=== PATIENT | male | born 1955 | race American Indian/Alaskan Native ===

== ENCOUNTER 2019-05-28 01:22 | Inpatient (IN) | payer OTHER, MEDICARE ==
[2019-05-28] MEDS ORDERED: ASPIRIN 325 MG TAB PO ONE (01:32)
[2019-05-28] MEDS ORDERED: FUROSEMIDE 40 MG/4 ML INJ IV ONE (01:35)
[2019-05-28] MEDS ORDERED: NITROGLYCERIN DRIP 50 MG/250 ML BOTTLE IV SCH (02:00)
[2019-05-28 02:11] LABS: Basophils % (Auto) 0.5 % (0.0-1.8); Eosinophils # (Auto) 0.1 K/mm3 (0.0-0.4); Eosinophils % (Auto) 1.5 % (0.0-4.3); Hematocrit 38.9 % (35.5-45.6); Hemoglobin 12.9 gm/dl (11.8-15.2); Lymphocytes # (Auto) 1.4 K/mm3 (1.2-5.4); Lymphocytes % (Auto) 20.7 % (13.4-35.0); Mean Corpuscular HGB Conc 33 % (32-34); Mean Corpuscular Volume 96 fl (84-94); Monocytes # (Auto) 0.4 K/mm3 (0.0-0.8); Monocytes % (Auto) 5.2 % (0.0-7.3); Platelet Count 207 K/mm3 (140-440); Red Blood Count 4.07 M/mm3 (3.65-5.03); Red Cell Distribution Width 15.7 % (13.2-15.2)
[2019-05-28 02:17] LABS: INR 1.06 (0.87-1.13)
[2019-05-28 02:18] LABS: Partial Thromboplastin Time 25.2 Sec. (24.2-36.6)
[2019-05-28] MEDS ORDERED: NITROGLYCERIN 2% OINT 1 GM TP ONE ×2 (02:23→02:32)
--- NOTE | 2019-05-28 02:23 | XRay Report ---
CHEST 1 VIEW 05/28/2019 1:41 AM INDICATION / CLINICAL INFORMATION: respiratory distress. COMPARISON: None available. FINDINGS: SUPPORT DEVICES: None. HEART / MEDIASTINUM: The heart is moderately enlarged with central vascular congestion. LUNGS / PLEURA: Generalized bilateral interstitial opacities are noted with more dense airspace opaci ties seen along the mid to lower portions of the right lung. No significant pleural effusion. No pneu mothorax. ADDITIONAL FINDINGS: No significant additional findings. IMPRESSION: 1. Probable bilateral atelectasis/edema. 2. Moderate cardiomegaly. Signer Name: Alexi Parish MD Signed: 05/28/2019 2:18 AM Workstation Name: [id number]
[2019-05-28 02:33] LABS: BUN/Creatinine Ratio 16; Blood Urea Nitrogen 16 mg/dL (9-20); Calcium 8.4 mg/dL (8.4-10.2); Hemolysis Index 8
--- NOTE | 2019-05-28 02:37 | Emergency Department Report ---
ED General Adult HPI - General Chief complaint: Dyspnea/Respdistress Stated complaint: MÓNICA Time Seen by Provider: 05/28/19 01:32 Source: patient, EMS Mode of arrival: Stretcher Limitations: No Limitations - History of Present Illness Initial comments: Patient is a 64-year-old -[place] male with past history of hypertension and recent diagnosis several weeks ago congestive heart failure who is presenting with acute shortness of breath. Patient's states that approximately 3 hours ago she was woken up with the patient stating he was very short of breath and will feel as though he is being smothered. Patient of the last several weeks has had 3 pillow orthopnea and PND but symptoms worsened. Patient is compliant with his medications and diet. Paramedics state that the patient was hypertensive and hypoxic on their arrival and a O2 sat of 83%. Patient is denying chest pain nausea vomiting fever chills cough cold or congestion. - Related Data Home Medications Medication Instructions Recorded Confirmed Last Taken Benicar 40 mg PO DAILY 05/28/19 05/28/19 Unknown Lasix TAB 40 mg PO DAILY 05/28/19 05/28/19 Unknown Metoprolol 50 mg PO DAILY 05/28/19 05/28/19 Unknown Potassium Chloride 20 meq PO DAILY 05/28/19 05/28/19 Unknown Synthroid 150 mcg PO TID 05/28/19 05/28/19 Unknown dilTIAZem 30 mg PO DAILY 05/28/19 05/28/19 Unknown Allergies Allergy/AdvReac Type Severity Reaction Status Date / Time No Known Allergies Allergy Verified 05/28/19 01:34 ED Review of Systems ROS: Stated complaint: MÓNICA Other details as noted in HPI Comment: All other systems reviewed and negative ED Past Medical Hx - Past Medical History Previous Medical History?: Yes Hx Hypertension: Yes Hx Congestive Heart Failure: Yes - Surgical History Past Surgical History?: No - Social History Smoking Status: Never Smoker Substance Use Type: None - Medications Home Medications: Home Medications Medication Instructions Recorded Confirmed Last Taken Type Benicar 40 mg PO DAILY 05/28/19 05/28/19 Unknown History Lasix TAB 40 mg PO DAILY 05/28/19 05/28/19 Unknown History Metoprolol 50 mg PO DAILY 05/28/19 05/28/19 Unknown History Potassium Chloride 20 meq PO DAILY 05/28/19 05/28/19 Unknown History Synthroid 150 mcg PO TID 05/28/19 05/28/19 Unknown History dilTIAZem 30 mg PO DAILY 05/28/19 05/28/19 Unknown History ED Physical Exam - General Limitations: No Limitations General appearance: alert, in distress - Head Head exam: Present: atraumatic, normocephalic - Eye Eye exam: Present: normal appearance, PERRL, EOMI - ENT ENT exam: Present: mucous membranes moist - Neck Neck exam: Present: normal inspection - Respiratory Respiratory exam: Present: normal lung sounds bilaterally, rales. Absent: respiratory distress, wheezes, rhonchi - Cardiovascular Cardiovascular Exam: Present: regular rate, normal rhythm, normal heart sounds. Absent: systolic murmur, diastolic murmur, rubs, gallop - GI/Abdominal GI/Abdominal exam: Present: soft, normal bowel sounds. Absent: distended, tenderness, guarding, rebound, rigid - Rectal Rectal exam: Present: deferred - Extremities Exam Extremities exam: Present: normal inspection, other (+1 edema to bilateral ankles) - Back Exam Back exam: Present: normal inspection - Neurological Exam Neurological exam: Present: alert, oriented X3 - Psychiatric Psychiatric exam: Present: normal affect, normal mood - Skin Skin exam: Present: warm, dry, intact, normal color. Absent: rash ED Course Vital Signs 05/28/19 05/28/19 05/28/19 01:34 01:58 02:06 Temperature 97.8 F Pulse Rate 76 64 66 Respiratory 16 27 H 16 Rate Blood Pressure 180/110 126/85 Blood Pressure 126/85 [Left] O2 Sat by Pulse 88 96 96 Oximetry 05/28/19 02:33 Temperature Pulse Rate Respiratory Rate Blood Pressure 136/87 Blood Pressure [Left] O2 Sat by Pulse Oximetry ED Medical Decision Making - Lab Data Result diagrams: 05/28/19 01:51 05/28/19 01:51 Lab Results 05/28/19 05/28/19 05/28/19 Range/Units 01:51 01:51 01:51 WBC 6.9 (4.5-11.0) K/mm3 RBC 4.07 (3.65-5.03) M/mm3 Hgb 12.9 (11.8-15.2) gm/dl Hct 38.9 (35.5-45.6) % MCV 96 H (84-94) fl MCH 32 (28-32) pg MCHC 33 (32-34) % RDW 15.7 H (13.2-15.2) % Plt Count 207 (140-440) K/mm3 Lymph % (Auto) 20.7 (13.4-35.0) % Glynn % (Auto) 5.2 (0.0-7.3) % Eos % (Auto) 1.5 (0.0-4.3) % Baso % (Auto) 0.5 (0.0-1.8) % Lymph # 1.4 (1.2-5.4) K/mm3 Glynn # 0.4 (0.0-0.8) K/mm3 Eos # 0.1 (0.0-0.4) K/mm3 Baso # 0.0 (0.0-0.1) K/mm3 Seg Neutrophils % 72.1 H (40.0-70.0) % Seg Neutrophils # 5.0 (1.8-7.7) K/mm3 PT 13.7 (12.2-14.9) Sec. INR 1.06 (0.87-1.13) APTT 25.2 (24.2-36.6) Sec. Sodium 142 (137-145) mmol/L Potassium 3.7 (3.6-5.0) mmol/L Chloride 105.0 (98-107) mmol/L Carbon Dioxide 23 (22-30) mmol/L Anion Gap 18 mmol/L BUN 16 (9-20) mg/dL Creatinine 1.0 (0.8-1.5) mg/dL Estimated GFR > 60 ml/min BUN/Creatinine Ratio 16 % Glucose 213 H (75-100) mg/dL Calcium 8.4 (8.4-10.2) mg/dL Troponin T < 0.010 (0.00-0.029) ng/mL NT-Pro-B Natriuret Pep (0-900) pg/mL 05/28/19 Range/Units 01:51 WBC (4.5-11.0) K/mm3 RBC (3.65-5.03) M/mm3 Hgb (11.8-15.2) gm/dl Hct (35.5-45.6) % MCV (84-94) fl MCH (28-32) pg MCHC (32-34) % RDW (13.2-15.2) % Plt Count (140-440) K/mm3 Lymph % (Auto) (13.4-35.0) % Glynn % (Auto) (0.0-7.3) % Eos % (Auto) (0.0-4.3) % Baso % (Auto) (0.0-1.8) % Lymph # (1.2-5.4) K/mm3 Glynn # (0.0-0.8) K/mm3 Eos # (0.0-0.4) K/mm3 Baso # (0.0-0.1) K/mm3 Seg Neutrophils % (40.0-70.0) % Seg Neutrophils # (1.8-7.7) K/mm3 PT (12.2-14.9) Sec. INR (0.87-1.13) APTT (24.2-36.6) Sec. Sodium (137-145) mmol/L Potassium (3.6-5.0) mmol/L Chloride (98-107) mmol/L Carbon Dioxide (22-30) mmol/L Anion Gap mmol/L BUN (9-20) mg/dL Creatinine (0.8-1.5) mg/dL Estimated GFR ml/min BUN/Creatinine Ratio % Glucose (75-100) mg/dL Calcium (8.4-10.2) mg/dL Troponin T (0.00-0.029) ng/mL NT-Pro-B Natriuret Pep 2020 H (0-900) pg/mL - EKG Data -: EKG Interpreted by Mo - EKG Data 05/28/19 02:48 EKG shows sinus rhythm with a rate of 88 axis is normal intervals normal. There are Q waves anteriorly. There is no ST segment elevations or depressions. - Radiology Data CHEST 1 VIEW 05/28/2019 1:41 AM INDICATION / CLINICAL INFORMATION: respiratory distress. COMPARISON: None available. FINDINGS: SUPPORT DEVICES: None. HEART / MEDIASTINUM: The heart is moderately enlarged with central vascular congestion. LUNGS / PLEURA: Generalized bilateral interstitial opacities are noted with more dense airspace opacities seen along the mid to lower portions of the right lung. No significant pleural effusion. No pneumothorax. ADDITIONAL FINDINGS: No significant additional findings. IMPRESSION: 1. Probable bilateral atelectasis/edema. 2. Moderate cardiomegaly. Signer Name: Alexi Parish MD Signed: 05/28/2019 2:18 AM Workstation Name: [email or web address] Transcribed By: MELLY Dictated By: Alexi Parish MD Electronically Authenticated By: Alexi - Medical Decision Making Patient was showing evidence of air hunger on arrival was placed on BiPAP. Patient was able to calm down. Nitro drip was to be initiated however his pressure improved after he was better ventilated. Patient was started on nitro paste. Patient given IV Lasix. Chest x-ray is consistent with pulmonary edema. Patient will be admitted to the hospitalist service at this time. Critical care attestation.: If time is entered above; I have spent that time in minutes in the direct care of this critically ill patient, excluding procedure time. ED Disposition Clinical Impression: Hypertensive urgency, malignant, Hypoxia, Acute respiratory distress Acute exacerbation of CHF (congestive heart failure) Qualifiers: Heart failure type: unspecified Qualified Code(s): I50.9 - Heart failure, unspecified Disposition: OP ADMIT IP TO THIS HOSP Is pt being admited?: Yes Does the pt Need Aspirin: No Condition: Stable Referrals: PRIMARY CARE, [Primary Care Provider] - 3-5 Days Time of Disposition: 02:50
[2019-05-28] MEDS ORDERED: ONDANSETRON 4 MG/2 ML INJ IV PRN (02:56)
[2019-05-28] MEDS ORDERED: ACETAMINOPHEN 325 MG TAB PO PRN (02:56)
[2019-05-28] MEDS ORDERED: ALBUTEROL 2.5 MG/3 ML NEBU IH PRN (02:56)
[2019-05-28] MEDS ORDERED: NITROGLYCERIN 0.4 MG TAB SUBL SL PRN (03:22)
[2019-05-28] MEDS ORDERED: ASPIRIN 81 MG TAB CHEW PO ONE (03:22)
--- NOTE | 2019-05-28 03:30 | History and Physical Report ---
<BRANDIN ANDERSON - Last Filed: 05/28/19 03:25> History of Present Illness Date of examination: 05/28/19 Date of admission: 05/28/2019 Chief complaint: difficulty in breathing History of present illness: 64-year-old -[place] male with history CHF and hypertension who presents [facility] ED with complaints of difficulty in breathing.Pt and son are present at bedside and have assisted in providing history. Pt was at home in bed sle eping when he was awakened feeling extremely short of breath. He described it as feeling "smothered". Pt states that this is not the first time he was awakened from sleep with this feeling. However tonight's episode was the worst he's ever felt. EMS was called and upon arrival pt was found to be profoundly hypertensive and hypoxic with saturation of 83% on RA. Pt was placed on supplemental O2 and transported to our facility. Pt admits to being compliant with meds. He denies CP, n/v, diaphoresis, fever, headache, or hemoptysis. Past History Past Medical History: heart failure, hypertension, hypothyroidism Past Surgical History: No surgical history Social history: Family history: no significant family history Medications and Allergies Allergies Allergy/AdvReac Type Severity Reaction Status Date / Time No Known Allergies Allergy Verified 05/28/19 01:34 Home Medications Medication Instructions Recorded Confirmed Last Taken Type Benicar 40 mg PO DAILY 05/28/19 05/28/19 Unknown History Lasix TAB 40 mg PO DAILY 05/28/19 05/28/19 Unknown History Metoprolol 50 mg PO DAILY 05/28/19 05/28/19 Unknown History Potassium Chloride 20 meq PO DAILY 05/28/19 05/28/19 Unknown History Synthroid 150 mcg PO TID 05/28/19 05/28/19 Unknown History dilTIAZem 30 mg PO DAILY 05/28/19 05/28/19 Unknown History Active Meds: Active Medications Acetaminophen (Tylenol) 650 mg PO Q4H PRN PRN Reason: Pain MILD(1-3)/Fever >100.5/[place] Albuterol (Proventil) 2.5 mg IH Q3HRT PRN PRN Reason: Shortness Of Breath Aspirin (Baby Aspirin) 81 mg PO ONCE ONE Stop: 05/28/19 03:23 Diltiazem HCl (Cardizem) 30 mg PO DAILY [facility] Furosemide (Lasix) 40 mg IV BID@0600,1800 [facility] Heparin Sodium (Porcine) (Heparin) 5,000 unit SUB-Q Q12HR [facility] Nitroglycerin/Dextrose (Tridil Drip 50mg/250ml) 50 mg in 250 mls @ 3 mls/hr IV TITR [facility]; Protocol Levothyroxine Sodium (Synthroid) 150 mcg PO DAILY@0600 [facility] Metoprolol Tartrate (Metoprolol) 50 mg PO DAILY [facility] Miscellaneous Medication (Benicar) 40 mg PO DAILY [facility] Nitroglycerin (Nitrostat) 0.4 mg SL .Q5MIN PRN PRN Reason: Chest Pain Ondansetron HCl (Zofran) 4 mg IV Q8H PRN PRN Reason: Nausea And Vomiting Potassium Chloride (K-Dur) 20 meq PO QDAY [facility] Sodium Chloride (Sodium Chloride Flush Syringe 10 Ml) 10 ml IV BID [facility] Sodium Chloride (Sodium Chloride Flush Syringe 10 Ml) 10 ml IV PRN PRN PRN Reason: LINE FLUSH Review of Systems All systems: negative Cardiovascular: orthopnea, shortness of breath, paroxysmal nocturnal dyspnea, high blood pressure, leg edema Respiratory: shortness of breath Exam - Physical Exam Narrative exam: Physical exam General appearance: Present:mild distress, , alert and oriented 3, well developed, adult male - EENT Eyes: Present: PERRL, EOM intact ENT: hearing intact, normal dentition - Neck Neck: Present: supple, normal ROM - Respiratory Respiratory effort: Labored, on BiPaP Respiratory: Rales - Cardiovascular Heart rate: 66 (bpm) Rhythm: Sinus rhythm Heart Sounds: Present: S1 & S2. Absent: rub, click - Extremities Extremities: no ischemia, pulses intact, +1 bilateral lower extremity pitting edema - Peripheral Assessment Peripheral Pulses: within normal limits - Abdominal General gastrointestinal: Obese, soft, non-tender, normal bowel sounds - Integumentary Integumentary: Present: warm, dry - Musculoskeletal Musculoskeletal: Able to move all extremities -Neurological Neurological: CN II-XII intact - Psychiatric Psychiatric: cooperative - Constitutional Vitals: Temp Pulse Resp BP Pulse Ox 97.8 F 66 16 136/87 96 05/28/19 01:34 05/28/19 02:06 05/28/19 02:06 05/28/19 02:33 05/28/19 02:06 Results - Labs CBC & Chem 7: 05/28/19 01:51 05/28/19 01:51 Labs: Laboratory Last Values WBC 6.9 K/mm3 (4.5-11.0) 05/28/19 01:51 RBC 4.07 M/mm3 (3.65-5.03) 05/28/19 01:51 Hgb 12.9 gm/dl (11.8-15.2) 05/28/19 01:51 Hct 38.9 % (35.5-45.6) 05/28/19 01:51 MCV 96 fl (84-94) H 05/28/19 01:51 MCH 32 pg (28-32) 05/28/19 01:51 MCHC 33 % (32-34) 05/28/19 01:51 RDW 15.7 % (13.2-15.2) H 05/28/19 01:51 Plt Count 207 K/mm3 (140-440) 05/28/19 01:51 Lymph % (Auto) 20.7 % (13.4-35.0) 05/28/19 01:51 Thurston % (Auto) 5.2 % (0.0-7.3) 05/28/19 01:51 Eos % (Auto) 1.5 % (0.0-4.3) 05/28/19 01:51 Baso % (Auto) 0.5 % (0.0-1.8) 05/28/19 01:51 Lymph # 1.4 K/mm3 (1.2-5.4) 05/28/19 01:51 Thurston # 0.4 K/mm3 (0.0-0.8) 05/28/19 01:51 Eos # 0.1 K/mm3 (0.0-0.4) 05/28/19 01:51 Baso # 0.0 K/mm3 (0.0-0.1) 05/28/19 01:51 Seg Neutrophils % 72.1 % (40.0-70.0) H 05/28/19 01:51 Seg Neutrophils # 5.0 K/mm3 (1.8-7.7) 05/28/19 01:51 PT 13.7 Sec. (12.2-14.9) 05/28/19 01:51 INR 1.06 (0.87-1.13) 05/28/19 01:51 APTT 25.2 Sec. (24.2-36.6) 05/28/19 01:51 Sodium 142 mmol/L (137-145) 05/28/19 01:51 Potassium 3.7 mmol/L (3.6-5.0) 05/28/19 01:51 Chloride 105.0 mmol/L (98-107) 05/28/19 01:51 Carbon Dioxide 23 mmol/L (22-30) 05/28/19 01:51 Anion Gap 18 mmol/L 05/28/19 01:51 BUN 16 mg/dL (9-20) 05/28/19 01:51 Creatinine 1.0 mg/dL (0.8-1.5) 05/28/19 01:51 Estimated GFR > 60 ml/min 05/28/19 01:51 BUN/Creatinine Ratio 16 % 05/28/19 01:51 Glucose 213 mg/dL (75-100) H 05/28/19 01:51 Calcium 8.4 mg/dL (8.4-10.2) 05/28/19 01:51 Troponin T < 0.010 ng/mL (0.00-0.029) 05/28/19 01:51 NT-Pro-B Natriuret Pep 2020 pg/mL (0-900) H 05/28/19 01:51 - Imaging and Cardiology Imaging and Cardiology: CXR: FINDINGS: SUPPORT DEVICES: None. HEART / MEDIASTINUM: The heart is moderately enlarged with central vascular congestion. LUNGS / PLEURA: Generalized bilateral interstitial opacities are noted with more dense airspace opacities seen along the mid to lower portions of the right lung. No significant pleural effusion. No pneumothorax. ADDITIONAL FINDINGS: No significant additional findings. IMPRESSION: 1. Probable bilateral atelectasis/edema. 2. Moderate cardiomegaly Assessment and Plan Assessment and plan: 64-year-old -[place] male with history CHF and hypertension who presents [facility] ED with complaints of difficulty in breathing. Hypertensive urgency -BP on admission 180/110 -Hx Hypertension; complaint with meds -Continue to monitor BP -Resume home antihypertensive meds to optimize BP -IV antihypertensive when necessary Acute hypoxic respiratory failure -No Baseline home oxygen requirements -Saturation of 83% on RA per EMS -Currently on BiPAP -Monitor saturations -Continue supplemental oxygen wean as tolerated Acute CHF -BNP elevated at 2019 -Troponin negative x1, will continue to trend -CXR shows: Probable bilateral atelectasis/edema and Moderate cardiomegaly -Patient has 1+ bilateral lower extremity edema -Start IV Lasix twice a day -On KELLY, BB, ASA -Cardiology consulted Elevated Blood Glucose -213 on adimission -Denies Hx of DM -HgbA1C pending DVT PPX -on Heparin Advance Directives: No VTE prophylaxis?: Chemical Plan of care discussed with patient/family: Yes <MARYBEL BERNABE - Last Filed: 05/28/19 06:18> History of Present Illness Date of admission: 05/28/19 02:56 Medications and Allergies Active Meds: Active Medications Acetaminophen (Tylenol) 650 mg PO Q4H PRN PRN Reason: Pain MILD(1-3)/Fever >100.5/[place] Albuterol (Proventil) 2.5 mg IH Q3HRT PRN PRN Reason: Shortness Of Breath Diltiazem HCl (Cardizem) 30 mg PO DAILY [facility] Furosemide (Lasix) 40 mg IV BID@0600,1800 [facility] Last Admin: 05/28/19 05:36 Dose: 40 mg Documented by: Heparin Sodium (Porcine) (Heparin) 5,000 unit SUB-Q Q12HR [facility] Hydralazine HCl (Apresoline) 10 mg IV Q4HR PRN PRN Reason: Blood Pressure Losartan Potassium (Cozaar) 100 mg PO QDAY [facility] Metoprolol Tartrate (Metoprolol) 50 mg PO DAILY [facility] Nitroglycerin (Nitrostat) 0.4 mg SL .Q5MIN PRN PRN Reason: Chest Pain Ondansetron HCl (Zofran) 4 mg IV Q8H PRN PRN Reason: Nausea And Vomiting Potassium Chloride (K-Dur) 20 meq PO QDAY [facility] Sodium Chloride (Sodium Chloride Flush Syringe 10 Ml) 10 ml IV BID [facility] Sodium Chloride (Sodium Chloride Flush Syringe 10 Ml) 10 ml IV PRN PRN PRN Reason: LINE FLUSH Exam - Constitutional Vitals: Temp Pulse Resp BP Pulse Ox 98.0 F 68 22 138/94 97 05/28/19 04:14 05/28/19 04:14 05/28/19 05:19 05/28/19 04:14 05/28/19 05:19 Results - Labs CBC & Chem 7: 05/28/19 01:51 05/28/19 01:51 Labs: Laboratory Last Values WBC 6.9 K/mm3 (4.5-11.0) 05/28/19 01:51 RBC 4.07 M/mm3 (3.65-5.03) 05/28/19 01:51 Hgb 12.9 gm/dl (11.8-15.2) 05/28/19 01:51 Hct 38.9 % (35.5-45.6) 05/28/19 01:51 MCV 96 fl (84-94) H 05/28/19 01:51 MCH 32 pg (28-32) 05/28/19 01:51 MCHC 33 % (32-34) 05/28/19 01:51 RDW 15.7 % (13.2-15.2) H 05/28/19 01:51 Plt Count 207 K/mm3 (140-440) 05/28/19 01:51 Lymph % (Auto) 20.7 % (13.4-35.0) 05/28/19 01:51 Thurston % (Auto) 5.2 % (0.0-7.3) 05/28/19 01:51 Eos % (Auto) 1.5 % (0.0-4.3) 05/28/19 01:51 Baso % (Auto) 0.5 % (0.0-1.8) 05/28/19 01:51 Lymph # 1.4 K/mm3 (1.2-5.4) 05/28/19 01:51 Thurston # 0.4 K/mm3 (0.0-0.8) 05/28/19 01:51 Eos # 0.1 K/mm3 (0.0-0.4) 05/28/19 01:51 Baso # 0.0 K/mm3 (0.0-0.1) 05/28/19 01:51 Seg Neutrophils % 72.1 % (40.0-70.0) H 05/28/19 01:51 Seg Neutrophils # 5.0 K/mm3 (1.8-7.7) 05/28/19 01:51 PT 13.7 Sec. (12.2-14.9) 05/28/19 01:51 INR 1.06 (0.87-1.13) 05/28/19 01:51 APTT 25.2 Sec. (24.2-36.6) 05/28/19 01:51 Sodium 142 mmol/L (137-145) 05/28/19 01:51 Potassium 3.7 mmol/L (3.6-5.0) 05/28/19 01:51 Chloride 105.0 mmol/L (98-107) 05/28/19 01:51 Carbon Dioxide 23 mmol/L (22-30) 05/28/19 01:51 Anion Gap 18 mmol/L 05/28/19 01:51 BUN 16 mg/dL (9-20) 05/28/19 01:51 Creatinine 1.0 mg/dL (0.8-1.5) 05/28/19 01:51 Estimated GFR > 60 ml/min 05/28/19 01:51 BUN/Creatinine Ratio 16 % 05/28/19 01:51 Glucose 213 mg/dL (75-100) H 05/28/19 01:51 Calcium 8.4 mg/dL (8.4-10.2) 05/28/19 01:51 Troponin T < 0.010 ng/mL (0.00-0.029) 05/28/19 01:51 NT-Pro-B Natriuret Pep 2020 pg/mL (0-900) H 05/28/19 01:51 Assessment and Plan Assessment and plan: 64 year old man with history of hypertension, CHF comes emergency room with complaints of shortness of breath and CHF exacerbation. Agree with plan as stated above, cardiac enzymes, echo
[2019-05-28] MEDS ORDERED: hydrALAZINE 20 MG/1 ML INJ IV PRN (03:33)
[2019-05-28] MEDS: FUROSEMIDE 40 MG/4 ML INJ IV SCH ×2 (05:36→18:02)
[2019-05-28] MEDS ORDERED: SYNTHROID 150 MCG PO SCH (06:00)
[2019-05-28] MEDS ORDERED: LEVOTHYROXINE 150 MCG TAB PO SCH (06:00)
[2019-05-28] MEDS ORDERED: dilTIAZem 30 MG TAB PO SCH (10:00)
[2019-05-28] MEDS ORDERED: POTASSIUM CHLORIDE 20 MEQ PO SCH (10:00)
[2019-05-28] MEDS ORDERED: NON-FORMULARY EACH (Metoprolol 50 MG) PO SCH (10:00)
[2019-05-28] MEDS ORDERED: DILTIAZEM 30 MG PO SCH (10:00)
[2019-05-28] MEDS ORDERED: BENICAR 40 MG PO SCH (10:00)
[2019-05-28] MEDS: METOPROLOL TARTRATE 50 MG TAB PO SCH (10:42)
[2019-05-28] MEDS: POTASSIUM CHLORIDE ER 20 MEQ TAB PO SCH (10:43)
[2019-05-28] MEDS: ASPIRIN 81 MG TAB CHEW PO SCH (10:43)
[2019-05-28] MEDS: LOSARTAN 50 MG TAB PO SCH (10:44)
[2019-05-28] MEDS: HEPARIN 5,000 UNIT/1 ML VIAL SUB-Q SCH ×2 (10:44→21:51)
[2019-05-28 14:41] LABS: Creatine Kinase MB 1.8 ng/mL (0.0-4.0)
--- NOTE | 2019-05-28 15:07 | Consultation ---
History of Present Illness Consult date: 05/28/19 Requesting physician: BRANDIN ANDERSON Consult reason: congestive heart failure History of present illness: The patient is a 64-year-old male with past medical history of newly diagnosed HFrEF (EF reportedly 30-35%) and HTN. He is previously unknown to our practice. He presented with c/o acute SOB for approx 3 hours prior to arrival. Additionally, pt reports 3 pillow orthopnea for several days prior to arrival. Pt denies any chest pain, palpitations, n/v, diahporesis, dizziness or syncope. Per EMS, pt was hypertensive and hypoxic on their arrival and a O2 sat of 83%. CXR following admission showed pulmonary edema. Of note, pt was hospitalized at [place] several weeks ago where he was diagnosed with HFrEF. He did not undergo ischemic evaluation at that time - he was told ischemic evaluation would be completed as OP. Past History Past Medical History: heart failure, hypertension, hypothyroidism Past Surgical History: No surgical history Social history: Family history: no significant family history Medications and Allergies Allergies Allergy/AdvReac Type Severity Reaction Status Date / Time No Known Allergies Allergy Verified 05/28/19 01:34 Home Medications Medication Instructions Recorded Confirmed Last Taken Type Benicar 40 mg PO DAILY 05/28/19 05/28/19 Unknown History Lasix TAB 40 mg PO DAILY 05/28/19 05/28/19 Unknown History Metoprolol 50 mg PO DAILY 05/28/19 05/28/19 Unknown History Potassium Chloride 20 meq PO DAILY 05/28/19 05/28/19 Unknown History Synthroid 150 mcg PO TID 05/28/19 05/28/19 Unknown History dilTIAZem 30 mg PO DAILY 05/28/19 05/28/19 Unknown History Active Meds: Active Medications Acetaminophen (Tylenol) 650 mg PO Q4H PRN PRN Reason: Pain MILD(1-3)/Fever >100.5/[place] Albuterol (Proventil) 2.5 mg IH Q3HRT PRN PRN Reason: Shortness Of Breath Aspirin (Baby Aspirin) 81 mg PO QDAY [facility] [place] Last Admin: 05/28/19 10:43 Dose: 81 mg Documented by: Diltiazem HCl (Cardizem) 30 mg PO DAILY [facility] [place] Last Admin: 05/28/19 10:44 Dose: 30 mg Documented by: Furosemide (Lasix) 40 mg IV BID@0600,1800 [facility] [place] Last Admin: 05/28/19 05:36 Dose: 40 mg Documented by: Heparin Sodium (Porcine) (Heparin) 5,000 unit SUB-Q Q12HR [facility] [place] Last Admin: 05/28/19 10:44 Dose: 5,000 unit Documented by: Hydralazine HCl (Apresoline) 10 mg IV Q4HR PRN PRN Reason: Blood Pressure Losartan Potassium (Cozaar) 100 mg PO QDAY [facility] [place] Last Admin: 05/28/19 10:44 Dose: Not Given Documented by: Metoprolol Tartrate (Metoprolol) 50 mg PO DAILY [facility] [place] Last Admin: 05/28/19 10:42 Dose: 50 mg Documented by: Nitroglycerin (Nitrostat) 0.4 mg SL .Q5MIN PRN PRN Reason: Chest Pain Ondansetron HCl (Zofran) 4 mg IV Q8H PRN PRN Reason: Nausea And Vomiting Potassium Chloride (K-Dur) 20 meq PO QDAY [facility] [place] Last Admin: 05/28/19 10:43 Dose: 20 meq Documented by: Sodium Chloride (Sodium Chloride Flush Syringe 10 Ml) 10 ml IV BID [facility] [place] Sodium Chloride (Sodium Chloride Flush Syringe 10 Ml) 10 ml IV PRN PRN PRN Reason: LINE FLUSH Review of Systems Constitutional: no fever, no chills, no sweats Ears, nose, mouth and throat: no ear pain, no nose pain, no sinus pressure, no sinus pain Cardiovascular: orthopnea, shortness of breath, dyspnea on exertion, paroxysmal nocturnal dyspnea, high blood pressure, decreased exercise tolerance, no chest pain, no palpitations, no rapid/irregular heart beat, no edema, no syncope, no lightheadedness, no leg edema Respiratory: shortness of breath, dyspnea on exertion, no cough, no congestion, no wheezing, no pain on inspiration Gastrointestinal: no abdominal pain, no nausea, no vomiting, no diarrhea, no constipation, no change in bowel habits Genitourinary Male: no dysuria, no hematuria, no flank pain, no discharge, no urinary frequency, no urinary hesitancy Musculoskeletal: no neck stiffness, no neck pain, no shooting arm pain, no arm numbness/tingling, no low back pain, no shooting leg pain Integumentary: no rash, no pruritis, no redness, no sores, no wounds Neurological: no head injury, no paralysis, no weakness, no parathesias, no numbness, no tingling, no seizures, no syncope Psychiatric: no anxiety Endocrine: no cold intolerance, no heat intolerance Hematologic/Lymphatic: no easy bruising, no easy bleeding Allergic/Immunologic: no urticaria, no wheezing Physical Examination Vital Signs Temp Pulse Resp BP Pulse Ox 97.8 F 76 16 180/110 88 05/28/19 01:34 05/28/19 01:34 05/28/19 01:34 05/28/19 01:34 05/28/19 01:34 General appearance: no acute distress HEENT: Positive: PERRL, Normocephaly, Mucus Membranes Moist Neck: Positive: neck supple, trachea midline Cardiac: Positive: Reg Rate and Rhythm, S1/S2 Lungs: Positive: Decreased Breath Sounds Neuro: Positive: Grossly Intact Abdomen: Negative: Tender Skin: Negative: Rash Musculoskeletal: No Pain Extremities: Absent: edema Results 05/28/19 01:51 05/28/19 01:51 Cardiac Enzymes 05/28/19 05/28/19 Range/Units 06:47 13:47 CK-MB (CK-2) 2.0 1.8 (0.0-4.0) ng/mL Coagulation 05/28/19 Range/Units 01:51 PT 13.7 (12.2-14.9) Sec. INR 1.06 (0.87-1.13) APTT 25.2 (24.2-36.6) Sec. CBC 05/28/19 Range/Units 01:51 WBC 6.9 (4.5-11.0) K/mm3 RBC 4.07 (3.65-5.03) M/mm3 Hgb 12.9 (11.8-15.2) gm/dl Hct 38.9 (35.5-45.6) % Plt Count 207 (140-440) K/mm3 Lymph # 1.4 (1.2-5.4) K/mm3 George # 0.4 (0.0-0.8) K/mm3 Eos # 0.1 (0.0-0.4) K/mm3 Baso # 0.0 (0.0-0.1) K/mm3 Comprehensive Metabolic Panel 05/28/19 Range/Units 01:51 Sodium 142 (137-145) mmol/L Potassium 3.7 (3.6-5.0) mmol/L Chloride 105.0 (98-107) mmol/L Carbon Dioxide 23 (22-30) mmol/L BUN 16 (9-20) mg/dL Creatinine 1.0 (0.8-1.5) mg/dL Glucose 213 H (75-100) mg/dL Calcium 8.4 (8.4-10.2) mg/dL EKG interpretations - EKG Sinus rhythms and dysrhythmias: sinus rhythm Assessment and Plan Cont GDMT and IV diuretics as tolerated. Plan for lexiscan MPI stress test in AM to r/o ischemic CMP. NPO after MN. The patient has been seen in conjunction with Dr. Dunlap who agrees with the assessment and plan of care. - Patient Problems (1) Acute HFrEF (heart failure with reduced ejection fraction) Current Visit: Yes Status: Acute (2) Cardiomyopathy Current Visit: Yes Status: Chronic (3) Hypertensive urgency, malignant Current Visit: Yes Status: Acute (4) Acute respiratory distress Current Visit: Yes Status: Acute (5) Hypoxia Current Visit: Yes Status: Acute
[2019-05-29 05:35] LABS: Basophils % (Auto) 0.1 % (0.0-1.8); Hematocrit 37.4 % (35.5-45.6); Hemoglobin 12.5 gm/dl (11.8-15.2); Lymphocytes # (Auto) 0.8 K/mm3 (1.2-5.4); Lymphocytes % (Auto) 10.1 % (13.4-35.0); Mean Corpuscular HGB Conc 33 % (32-34); Mean Corpuscular Volume 95 fl (84-94); Monocytes # (Auto) 0.5 K/mm3 (0.0-0.8); Monocytes % (Auto) 6.6 % (0.0-7.3); Platelet Count 189 K/mm3 (140-440); Red Blood Count 3.95 M/mm3 (3.65-5.03); Red Cell Distribution Width 15.8 % (13.2-15.2)
[2019-05-29 05:51] LABS: BUN/Creatinine Ratio 24; Blood Urea Nitrogen 24 mg/dL (9-20); Calcium 8.6 mg/dL (8.4-10.2); Hemolysis Index 27
[2019-05-29] MEDS: FUROSEMIDE 40 MG/4 ML INJ IV SCH ×2 (06:18→17:09)
[2019-05-29] MEDS ORDERED: REGADENOSON 0.4 MG/5 ML INJ IV ONE ×2 (08:12→08:20)
--- NOTE | 2019-05-29 10:40 | Progress Note ---
Assessment and Plan Echo reviewed - EF 20-25%, mild LVH, abnormal diastolic function, mod AR, mod MR, trace TR, trivial pericardial effusion. Cont GDMT and diuretics as tolerated. Proceed with lexiscan MPI stress test. Await findings. The patient has been seen in conjunction with Dr. Dunlap who agrees with the assessment and plan of care. - Patient Problems (1) Acute HFrEF (heart failure with reduced ejection fraction) Current Visit: Yes Status: Acute (2) Cardiomyopathy Current Visit: Yes Status: Chronic (3) Hypertensive urgency, malignant Current Visit: Yes Status: Acute (4) Acute respiratory distress Current Visit: Yes Status: Acute (5) Hypoxia Current Visit: Yes Status: Acute Subjective Date of service: 05/29/19 Principal diagnosis: HF Interval history: pt feeling better, for stress test today. in SR on tele. Objective Last Vital Signs Temp 98.4 F 05/29/19 07:26 Pulse 77 05/29/19 07:26 Resp 20 05/29/19 07:26 BP 130/78 05/29/19 07:26 Pulse Ox 98 05/29/19 07:55 - Physical Examination General: No Apparent Distress HEENT: Positive: PERRL, Normocephaly, Mucus Membranes Moist Neck: Positive: neck supple, trachea midline Cardiac: Positive: Reg Rate and Rhythm, S1/S2 Lungs: Positive: Decreased Breath Sounds Neuro: Positive: Grossly Intact Abdomen: Negative: Tender Skin: Negative: Rash Musculoskeletal: No Pain Extremities: Absent: edema - Labs and Meds Cardiac Enzymes 05/28/19 Range/Units 13:47 CK-MB (CK-2) 1.8 (0.0-4.0) ng/mL CBC 05/29/19 Range/Units 04:29 WBC 7.6 (4.5-11.0) K/mm3 RBC 3.95 (3.65-5.03) M/mm3 Hgb 12.5 (11.8-15.2) gm/dl Hct 37.4 (35.5-45.6) % Plt Count 189 (140-440) K/mm3 Lymph # 0.8 L (1.2-5.4) K/mm3 Fleming # 0.5 (0.0-0.8) K/mm3 Eos # 0.0 (0.0-0.4) K/mm3 Baso # 0.0 (0.0-0.1) K/mm3 Comprehensive Metabolic Panel 05/29/19 Range/Units 04:29 Sodium 146 H (137-145) mmol/L Potassium 3.4 L (3.6-5.0) mmol/L Chloride 102.0 (98-107) mmol/L Carbon Dioxide 24 (22-30) mmol/L BUN 24 H (9-20) mg/dL Creatinine 1.0 (0.8-1.5) mg/dL Glucose 130 H (75-100) mg/dL Calcium 8.6 (8.4-10.2) mg/dL - Imaging and Cardiology EKG: report reviewed, image reviewed - EKG Sinus rhythms and dysrhythmias: sinus rhythm
[2019-05-29] MEDS ORDERED: POTASSIUM CHLORIDE ER 20 MEQ TAB PO SCH (10:41)
[2019-05-29] MEDS: ASPIRIN 81 MG TAB CHEW PO SCH (12:39)
[2019-05-29] MEDS: POTASSIUM CHLORIDE ER 20 MEQ TAB PO SCH (12:39)
[2019-05-29] MEDS: METOPROLOL TARTRATE 50 MG TAB PO SCH (12:40)
[2019-05-29] MEDS: LOSARTAN 50 MG TAB PO SCH (12:41)
[2019-05-29] MEDS: HEPARIN 5,000 UNIT/1 ML VIAL SUB-Q SCH ×2 (12:43→22:15)
--- NOTE | 2019-05-29 13:28 | Progress Note ---
Assessment and Plan Assessment and plan: Acute on chronic systolic HF with reported EF of 30-35% -on IV diuretics and BB -echo pending -for ischemic eval with stress test today -cardiology following Hypertensive urgency -BP improved, will monitor -cont cozaar and metoprolol Acute respiratory failure with hypoxia -likely 2/2 acute HF -Continue supplemental oxygen and wean as tolerated Hypokalemia -on repletion, will monitor -will check mg level Prediabetes with hba1c of 6.4 -diet control recommended Obesity with BMI of 36.9 -lifestyle modifications recommended DVT ppx: Heparin Disp: d/c per clinical course and clearance by cardiology History Interval history: Pt reports some improvement in his sob. He denied chest pain Hospitalist Physical - Constitutional Vitals: Temp Pulse Resp BP Pulse Ox 98.5 F 86 18 156/98 96 05/29/19 11:47 05/29/19 12:41 05/29/19 11:47 05/29/19 12:41 05/29/19 11:47 General appearance: Present: no acute distress, obese - EENT Eyes: Present: PERRL, EOM intact ENT: hearing intact, clear oral mucosa - Neck Neck: Present: supple - Respiratory Respiratory effort: normal Respiratory: bilateral: diminished - Cardiovascular Rhythm: regular Heart Sounds: Present: S1 & S2 - Extremities Extremities: No edema - Abdominal General gastrointestinal: soft, non-tender, normal bowel sounds - Integumentary Integumentary: Present: warm, dry - Psychiatric Psychiatric: appropriate mood/affect - Neurologic Neurologic: CNII-XII intact Results - Labs CBC & Chem 7: 05/29/19 04:29 05/29/19 04:29 Labs: Laboratory Last Values WBC 7.6 K/mm3 (4.5-11.0) 05/29/19 04:29 RBC 3.95 M/mm3 (3.65-5.03) 05/29/19 04:29 Hgb 12.5 gm/dl (11.8-15.2) 05/29/19 04:29 Hct 37.4 % (35.5-45.6) 05/29/19 04:29 MCV 95 fl (84-94) H 05/29/19 04:29 MCH 32 pg (28-32) 05/29/19 04:29 MCHC 33 % (32-34) 05/29/19 04:29 RDW 15.8 % (13.2-15.2) H 05/29/19 04:29 Plt Count 189 K/mm3 (140-440) 05/29/19 04:29 Lymph % (Auto) 10.1 % (13.4-35.0) L 05/29/19 04:29 Leon % (Auto) 6.6 % (0.0-7.3) 05/29/19 04:29 Eos % (Auto) 0.0 % (0.0-4.3) 05/29/19 04:29 Baso % (Auto) 0.1 % (0.0-1.8) 05/29/19 04:29 Lymph # 0.8 K/mm3 (1.2-5.4) L 05/29/19 04:29 Leon # 0.5 K/mm3 (0.0-0.8) 05/29/19 04:29 Eos # 0.0 K/mm3 (0.0-0.4) 05/29/19 04:29 Baso # 0.0 K/mm3 (0.0-0.1) 05/29/19 04:29 Seg Neutrophils % 83.2 % (40.0-70.0) H 05/29/19 04:29 Seg Neutrophils # 6.3 K/mm3 (1.8-7.7) 05/29/19 04:29 PT 13.7 Sec. (12.2-14.9) 05/28/19 01:51 INR 1.06 (0.87-1.13) 05/28/19 01:51 APTT 25.2 Sec. (24.2-36.6) 05/28/19 01:51 Sodium 146 mmol/L (137-145) H 05/29/19 04:29 Potassium 3.4 mmol/L (3.6-5.0) L 05/29/19 04:29 Chloride 102.0 mmol/L (98-107) 05/29/19 04:29 Carbon Dioxide 24 mmol/L (22-30) 05/29/19 04:29 Anion Gap 23 mmol/L 05/29/19 04:29 BUN 24 mg/dL (9-20) H 05/29/19 04:29 Creatinine 1.0 mg/dL (0.8-1.5) 05/29/19 04:29 Estimated GFR > 60 ml/min 05/29/19 04:29 BUN/Creatinine Ratio 24 % 05/29/19 04:29 Glucose 130 mg/dL (75-100) H 05/29/19 04:29 Hemoglobin A1c 6.4 % (4-6) H 05/28/19 05:56 Calcium 8.6 mg/dL (8.4-10.2) 05/29/19 04:29 Total Creatine Kinase 208 units/L (55-170) H 05/28/19 13:47 CK-MB (CK-2) 1.8 ng/mL (0.0-4.0) 05/28/19 13:47 CK-MB (CK-2) Rel Index 0.8 (0-4) 05/28/19 13:47 Troponin T < 0.010 ng/mL (0.00-0.029) 05/28/19 13:47 NT-Pro-B Natriuret Pep 2020 pg/mL (0-900) H 05/28/19 01:51 Active Medications - Current Medications Current Medications: Generic Name Dose Route Start Last Admin Trade Name Freq PRN Reason Stop Dose Admin Acetaminophen 650 mg 05/28/19 02:56 Tylenol PO Q4H PRN Pain MILD(1-3)/Fever >100.5/[place] Albuterol 2.5 mg 05/28/19 02:56 Proventil IH Q3HRT PRN Shortness Of Breath Aspirin 81 mg 05/28/19 10:00 05/29/19 12:39 Baby Aspirin PO 81 mg QDAY SUHA Administration Furosemide 40 mg 05/28/19 06:00 05/29/19 06:18 Lasix IV 40 mg BID@0600,1800 SUHA Administration Heparin Sodium (Porcine) 5,000 unit 05/28/19 10:00 05/29/19 12:43 Heparin SUB-Q 5,000 unit Q12HR SUHA Administration Hydralazine HCl 10 mg 05/28/19 03:33 Apresoline IV Q4HR PRN Blood Pressure Losartan Potassium 100 mg 05/28/19 10:00 05/29/19 12:41 Cozaar PO 100 mg QDAY SUHA Administration Metoprolol Tartrate 50 mg 05/28/19 10:00 05/29/19 12:40 Metoprolol PO 50 mg DAILY SUHA Administration Nitroglycerin 0.4 mg 05/28/19 03:22 Nitrostat SL .Q5MIN PRN Chest Pain Ondansetron HCl 4 mg 05/28/19 02:56 Zofran IV Q8H PRN Nausea And Vomiting Potassium Chloride 20 meq 05/28/19 10:00 05/29/19 12:39 K-Dur PO 20 meq QDAY SUHA Administration Potassium Chloride 20 meq 05/29/19 10:41 05/29/19 13:00 K-Dur PO 05/29/19 23:59 20 meq ONCE SUHA Administration Sodium Chloride 10 ml 05/28/19 10:00 05/29/19 12:38 Sodium Chloride Flush Syringe 10 Ml IV 10 ml BID SUHA Administration Sodium Chloride 10 ml 05/28/19 02:56 Sodium Chloride Flush Syringe 10 Ml IV PRN PRN LINE FLUSH
--- NOTE | 2019-05-29 13:30 | Treadmill Report ---
PRIMARY PHYSICIAN: Dr. Brian Valle. READING PHYSICIAN: Dr. Thrasher. REASON FOR STUDY: CHF. IMAGING PROTOCOL: Single isotope used documented as single isotope protocol. IMAGING RESULTS: Cavity is dilated on both stress and rest. Distribution radionuclide is normal in the anterior, inferior, septal, and apical regions. Gated SPECT, EF shows [id number] LV dysfunction, EF 28%. The patient infused Lexiscan with no EKG changes. SUMMARY: 1. Negative Lexiscan EKG. 2. Dilated LV cavity seen both stress and rest with [id number] LV dysfunction with no significant ischemia suggestive of nonischemic cardiomyopathy. JOB# [id number] WINNIE/CHUCK
--- NOTE | 2019-05-29 14:09 | Event Note ---
Date: 05/29/19 S/p lexiscan MPI stress test today which was negative for significant ischemia, reduced LVEF, c/w NICMP. Cont diuresis. Anticipate d/c home tomorrow. Zena QUIROZ NP / DR. BARNEY
[2019-05-30 05:22] LABS: BUN/Creatinine Ratio 23; Blood Urea Nitrogen 23 mg/dL (9-20); Calcium 8.3 mg/dL (8.4-10.2); Hemolysis Index 11
[2019-05-30] MEDS: FUROSEMIDE 40 MG/4 ML INJ IV SCH (05:59)
[2019-05-30 07:44] VITALS: BP 133/98
[2019-05-30] MEDS ORDERED: POTASSIUM CHLORIDE ER 20 MEQ TAB PO NR (09:08)
--- NOTE | 2019-05-30 09:12 | Progress Note ---
Assessment and Plan 64-year-old gentleman with obesity hypertension hyperlipidemia presents with acute systolic heart failure with acute respiratory failure requiring IV diuretics and BP management for acute hypertensive urgency. Patient has severe LV dysfunction echocardiogram EF 20 to 25%. Patient stress test revealed nonischemic cardiopathy. We'll increase beta sim 100 mg of Toprol. Continue Benicar 40 mg. Continue Lasix 40 mg add Aldactone 25 mg. DC Cardizem add Lipitor for hyperlipidemia treatment. Patient will follow-up in cardiology clinic next week. Discussed in detail by dietary discretion and fluid restriction and salt restriction. - Patient Problems (1) Hyperlipemia, mixed Current Visit: Yes Status: Chronic (2) Acute HFrEF (heart failure with reduced ejection fraction) Current Visit: Yes Status: Acute (3) Acute exacerbation of CHF (congestive heart failure) Current Visit: Yes Status: Acute Qualifiers: Heart failure type: systolic Qualified Code(s): I50.23 - Acute on chronic systolic (congestive) heart failure (4) Acute respiratory distress Current Visit: Yes Status: Acute (5) Hypertensive urgency, malignant Current Visit: Yes Status: Resolved (6) Hypoxia Current Visit: Yes Status: Resolved (7) Cardiomyopathy Current Visit: Yes Status: Chronic Qualifiers: Cardiomyopathy type: dilated Qualified Code(s): I42.0 - Dilated cardiomyopathy Subjective Date of service: 05/30/19 Principal diagnosis: HF Interval history: pt is able to walk and no sob and ly flat Objective Vital Signs Temp Pulse Resp BP Pulse Ox 05/30/19 08:10 97 05/30/19 07:41 98.2 F 76 18 133/98 97 05/30/19 04:15 98.2 F 80 18 143/98 98 05/30/19 04:00 80 05/29/19 23:48 98.0 F 80 18 142/100 98 05/29/19 21:47 96 05/29/19 19:36 84 05/29/19 19:21 98.3 F 84 18 141/88 96 05/29/19 16:42 85 134/91 96 05/29/19 13:27 18 05/29/19 12:41 86 156/98 05/29/19 12:40 90 18 156/98 98 05/29/19 12:00 92 H 05/29/19 11:47 98.5 F 83 18 116/67 96 05/29/19 10:20 133/81 05/29/19 10:19 139/78 05/29/19 10:18 144/79 05/29/19 10:17 136/93 05/29/19 09:38 137/90 - Physical Examination General: No Apparent Distress HEENT: Positive: PERRL, Normocephaly, Mucus Membranes Moist Neck: Positive: neck supple, trachea midline Cardiac: Positive: Reg Rate and Rhythm Lungs: Positive: Normal Exam Neuro: Positive: Grossly Intact Abdomen: Negative: Tender Skin: Negative: Rash Musculoskeletal: No Pain Extremities: Absent: edema - Labs and Meds Comprehensive Metabolic Panel 05/30/19 Range/Units 04:10 Sodium 147 H (137-145) mmol/L Potassium 3.2 L (3.6-5.0) mmol/L Chloride 102.9 (98-107) mmol/L Carbon Dioxide 32 H D (22-30) mmol/L BUN 23 H (9-20) mg/dL Creatinine 1.0 (0.8-1.5) mg/dL Glucose 109 H (75-100) mg/dL Calcium 8.3 L (8.4-10.2) mg/dL - Imaging and Cardiology EKG: report reviewed, image reviewed Pharmacologic stress test: report reviewed (normal myocardial perfusionischemia nonischemic cardiopathy EF 28%) Echo: report reviewed (severe LV dysfunction EF 2025% mild MR no aortic regurgitation or aortic stenosis) - Telemetry EKG Rhythm: Sinus Rhythm - EKG Sinus rhythms and dysrhythmias: sinus rhythm
[2019-05-30] MEDS: LOSARTAN 50 MG TAB PO SCH (11:00)
[2019-05-30] MEDS ORDERED: SPIRONOLACTONE 25 MG TAB PO SCH (11:00)
[2019-05-30] MEDS ORDERED: METOPROLOL SUCCINATE XL 100 MG TAB PO SCH (11:00)
[2019-05-30] MEDS: HEPARIN 5,000 UNIT/1 ML VIAL SUB-Q SCH (11:01)
[2019-05-30] MEDS: ASPIRIN 81 MG TAB CHEW PO SCH (11:01)
--- NOTE | 2019-05-30 17:36 | Discharge Summary ---
Providers - Providers Date of Admission: 05/28/19 02:56 Date of discharge: 05/30/19 Attending physician: NIKITA HERNDON 05/28/19 02:56 Consult to Physician [CONS] Routine Comment: Consulting Provider: NATALI DAVIES Physician Instructions: Reason For Exam: AE CHF, HTN Urgerncy on nitro gtt 05/28/19 11:55 Physical Therapy Evaluation and Treat [CONS] Routine Comment: Reason For Exam: ataxia Primary care physician: SHRADDHA PLATA Hospitalization Condition: Stable Hospital course: 64-year-old -[place] male with history CHF and hypertension who presents [facility] ED with complaints of difficulty in breathing.Pt and son are present at bedside and have assisted in providing history. Pt was at home in bed sleeping when he was awakened feeling extremely short of breath. He described it as feeling "smothered". Pt states that this is not the first time he was awakened from sleep with this feeling. However tonight's episode was the worst he's ever felt. EMS was called and upon arrival pt was found to be profoundly hypertensive and hypoxic with saturation of 83% on RA. Pt was placed on supplemental O2 and transported to our facility. Pt admits to being compliant with meds. He denies CP, n/v, diaphoresis, fever, headache, or hemoptysis. Htn improved,CHF improved. Acute on chronic systolic HF with reported EF of 30-35% -D/c on diuretics and BB -echo 30 percent - stress test--Normal -cardiology following Hypertensive urgency -BP improved, will monitor -cont cozaar and metoprolol Acute respiratory failure with hypoxia -resolved -Continue supplemental oxygen and wean as tolerated Hypokalemia -Resolved -mg level Prediabetes with hba1c of 6.4 -diet control recommended Obesity with BMI of 36.9 -lifestyle modifications recommended Disposition: DC-01 TO HOME OR SELFCARE Core Measure Documentation - Palliative Care Palliative Care/ Comfort Measures: Not Applicable - Core Measures Any of the following diagnoses?: heart failure - Heart Failure Discharge Requirements KELLY/ARB for LVSD if EF <40%: Yes Beta sim at discharge: Yes Exam - Constitutional Vitals: Temp Pulse Resp BP Pulse Ox 98.2 F 83 18 133/98 97 05/30/19 07:41 05/30/19 13:00 05/30/19 07:41 05/30/19 11:01 05/30/19 08:10 General appearance: Present: no acute distress, well-nourished - EENT Eyes: Present: PERRL ENT: hearing intact, clear oral mucosa - Neck Neck: Present: supple, normal ROM - Respiratory Respiratory effort: normal Respiratory: bilateral: CTA - Cardiovascular Heart rate: 78 Rhythm: regular Heart Sounds: Present: S1 & S2. Absent: rub, click - Extremities Extremities: no ischemia, pulses intact, pulses symmetrical, No edema Peripheral Pulses: within normal limits - Abdominal General gastrointestinal: Present: soft, non-tender, non-distended, normal bowel sounds Male genitourinary: Present: normal - Rectal Rectal Exam: deferred - Integumentary Integumentary: Present: clear, warm, dry - Musculoskeletal Musculoskeletal: gait normal, strength equal bilaterally - Psychiatric Psychiatric: appropriate mood/affect, intact judgment & insight - Neurologic Neurologic: CNII-XII intact, moves all extremities - Allied Health Allied health notes reviewed: nursing, case management Plan Diet: low fat, low cholesterol, low salt Follow up with: PRIMARY CARE, [Referring] - 3-5 Days
[2019-05-31] MEDS ORDERED: FUROSEMIDE 40 MG TAB PO SCH (10:00)
== END 2019-05-30 19:50 | disposition home or self-care (01) | DRG 291 ==
LOC: ED 01:22 → 4A 02:56
PROVIDERS: ADMIT Internal Medicine; ATTEND Internal Medicine
PROC: 5A09357 Assistance with Respiratory Ventilation, Less than 24 Consecutive Hours, Continuous Positive Airway Pressure (ICD-10-PCS; principal; 2019-05-28)
DX: I11.0 Hypertensive heart disease with heart failure (principal); J96.01 Acute respiratory failure with hypoxia; I50.23 Acute on chronic systolic (congestive) heart failure; I16.0 Hypertensive urgency; E87.6 Hypokalemia; E66.9 Obesity, unspecified; E78.2 Mixed hyperlipidemia; I42.0 Dilated cardiomyopathy; R73.03 Prediabetes; E03.9 Hypothyroidism, unspecified; R73.9 Hyperglycemia, unspecified; Z68.36 Body mass index [BMI] 36.0-36.9, adult; Z71.3 Dietary counseling and surveillance; Z79.899 Other long term (current) drug therapy
CPT/HCPCS: 36415; 71045; 78452; 80048; 82550; 82553; 83036; 83735; 83880; 84484; 85025; 85610; 85730; 87116; 93005; 93010; 93017; 93306; 94760; 96374; G0378; A9502; J1644; J1940; J2785